=== PATIENT | male | born 1955 | race African-American/Black ===

== ENCOUNTER 2019-10-21 19:02 | Inpatient (IN) | payer MEDICAID, OTHER ==
[~2019-10-21] VITALS: Ht 180.3 cm; Wt 112.5 kg
[2019-10-21] MEDS ORDERED: ACETAMINOPHEN 325MG TABLET PO STA (19:29)
[2019-10-21] MEDS ORDERED: AZITHROMYCIN 500 MG in DEXT 5% WATER 250 ML IV ONE (19:30)
[2019-10-21] MEDS ORDERED: CEFTRIAXONE 1 G PREMIX 50 ML IV ONE (19:30)
[2019-10-21 22:11] LABS: BASOPHILS % 0.4 % (0.0-2.0); CHLORIDE 103 mEq/L (98-107); EOSINOPHILS % 0.6 % (0.0-5.0); HEMATOCRIT. 42.6 % (42.0-52.0); LYMPHOCYTES % 22.9 % (20.0-50.0); MEAN CORPUSCULAR VOLUME 82.2 fL (80.0-94.0); MONOCYTES % 8.7 % (2.0-8.0); NEUTROPHILS % 67.4 % (40.0-76.0); PLATELET 224 x1000/uL (130-400); RED BLOOD CELL COUNT 5.18 mill/uL (4.7-6.1); RED CELL DISTRIBUTION WIDTH 14.1 % (11.6-14.6)
[2019-10-22] MEDS ORDERED: ACETAMINOPHEN 325MG TABLET PO PRN (03:45)
[2019-10-22 05:25] VITALS: BP 112/80
[2019-10-22 06:50] VITALS: BP 112/80
[2019-10-22] MEDS ORDERED: ALBUTEROL 6.7GM HFA INHALER ORI PRN (07:00)
[2019-10-22 08:00] VITALS: BP 111/84
[2019-10-22] MEDS ORDERED: OXYB5TAB17 PO (08:00)
[2019-10-22] MEDS ORDERED: FINA1TAB18 PO (08:00)
[2019-10-22] MEDS ORDERED: TAMS-11 MT (08:00)
[2019-10-22] MEDS ORDERED: GABA-531 PO (08:00)
[2019-10-22] MEDS ORDERED: MULT-1146 MT (08:00)
[2019-10-22] MEDS ORDERED: GEMF600T5 MT (08:00)
[2019-10-22] MEDS ORDERED: BENZ100C86 MT (08:15)
[2019-10-22] MEDS ORDERED: FAMO20TA8 MT (08:15)
[2019-10-22] MEDS ORDERED: TAP5 MT (08:18)
[2019-10-22] MEDS: ACETAMINOPHEN 650MG/20.3ML UDC PO PRN ×2 (08:42→13:55)
[2019-10-22] MEDS ORDERED: MECL-159 PO (11:03)
[2019-10-22 12:00] VITALS: BP 110/64
[2019-10-22 16:00] VITALS: BP 111/83
[2019-10-22] MEDS: HYDROCODONE/ACETAMINOPHEN 10/325MG TABLET PO PRN (19:01)
[2019-10-22 20:00] VITALS: BP 125/84
[2019-10-22] MEDS: AZITHROMYCIN 250 MG in DEXT 5% WATER 250 ML IV SCH (21:42)
[2019-10-22] MEDS: CEFTRIAXONE 1 G PREMIX 50 ML IV SCH (21:42)
[2019-10-22] MEDS: ATORVASTATIN CALCIUM 40MG TABLET PO SCH (21:44)
[2019-10-22] MEDS: ENOXAPARIN 30MG/0.3ML SYR SUBCUT SCH (21:45)
[2019-10-23] VITALS: BP 128/75
[2019-10-23 04:00] VITALS: BP 119/67
[2019-10-23] MEDS: HYDROCODONE/ACETAMINOPHEN 10/325MG TABLET PO PRN ×3 (04:17→16:09)
[2019-10-23 08:00] VITALS: BP 118/76
[2019-10-23] MEDS: ENOXAPARIN 30MG/0.3ML SYR SUBCUT SCH (08:00)
[2019-10-23] MEDS: GUAIFENESIN 200MG/10ML SUGAR FREE UDC PO PRN (11:17)
[2019-10-23 12:00] VITALS: BP 116/68
[2019-10-23 16:00] VITALS: BP 118/60
[2019-10-23] MEDS: ACETAMINOPHEN 650MG/20.3ML UDC PO PRN (17:18)
[2019-10-23 20:00] VITALS: BP 102/55
[2019-10-23] MEDS ORDERED: REMDESIVIR 200 MG in SODIUM CHLORIDE 0.9% 250 ML IV NR (21:00)
[2019-10-23] MEDS: ZINC SULFATE 220 MG ( 50 ) CAPSULE PO SCH (21:20)
[2019-10-23] MEDS: ATORVASTATIN CALCIUM 40MG TABLET PO SCH (21:20)
[2019-10-23] MEDS: ASCORBIC ACID 500 MG TABLET PO SCH (21:21)
[2019-10-23] MEDS: THIAMINE HCL 100MG TABLET PO SCH (21:21)
[2019-10-23] MEDS: ENOXAPARIN 120MG/0.8ML SYR SUBCUT SCH (21:22)
[2019-10-23] MEDS: CEFTRIAXONE 1 G PREMIX 50 ML IV SCH (21:22)
[2019-10-23] MEDS: AZITHROMYCIN 250 MG in DEXT 5% WATER 250 ML IV SCH (23:31)
[2019-10-24] VITALS: BP 130/74
[2019-10-24 04:00] VITALS: BP 135/82
[2019-10-24 06:15] LABS: BASOPHILS % 0.3 % (0.0-2.0); EOSINOPHILS % 0.1 % (0.0-5.0); HEMATOCRIT. 40.5 % (42.0-52.0); HEMOGLOBIN. 13.9 g/dL (14.0-18.0); MEAN CORPUSCULAR VOLUME 81.7 fL (80.0-94.0); MEAN PLATELET VOLUME 7.8 fl (7.4-10.4); MONOCYTES % 8.3 % (2.0-8.0); NEUTROPHILS % 80.3 % (40.0-76.0); PLATELET 250 x1000/uL (130-400); RED BLOOD CELL COUNT 4.95 mill/uL (4.7-6.1); RED CELL DISTRIBUTION WIDTH 14.3 % (11.6-14.6)
[2019-10-24 06:28] LABS: CHLORIDE 103 mEq/L (98-107)
[2019-10-24 08:00] VITALS: BP 121/70
[2019-10-24] MEDS: THIAMINE HCL 100MG TABLET PO SCH ×2 (08:39→17:00)
[2019-10-24] MEDS: ENOXAPARIN 120MG/0.8ML SYR SUBCUT SCH ×2 (08:39→20:43)
[2019-10-24] MEDS: ZINC SULFATE 220 MG ( 50 ) CAPSULE PO SCH (08:39)
[2019-10-24] MEDS: ASCORBIC ACID 500 MG TABLET PO SCH ×2 (08:39→17:00)
[2019-10-24 12:00] VITALS: BP 112/72
[2019-10-24 16:00] VITALS: BP 120/75
[2019-10-24] MEDS: METHYLPREDNISOLONE SOD SUCC 40 MG/ML VIAL IV SCH (17:40)
[2019-10-24 17:58] LABS: BG BASE EXCESS -1.5 mmol/L (-2.0-2.0); BG CARBOXYHEMOGLOBIN 0.3 % (0.5-1.5); BG DEOXYHEMOGLOBIN 4.8 % (0.0-5.0); BG FRACTION INSPIRED OXYGEN 100; BG HCO3 ACT 22.9 mmol/L (22.0-26.0); BG METHEMOGLOBIN 0.4 % (0.0-1.5); BG OXYGEN SATURATION 95.2 % (92.0-98.5); BG OXYHEMOGLOBIN 94.5 % (94.0-97.0); BG PCO2 37.4 mmHg (35.0-45.0); BG PH 7.404 (7.350-7.450); BG PO2 80.9 mmHg (75.0-100.0); BG SAMPLE SITE LEFT RADIAL; BG TOTAL HEMOGLOBIN 14.3 g/dL (12.0-18.0); BG VENT MODE MASK - NRB
[2019-10-24] MEDS: ALBUTEROL 6.7GM HFA INHALER ORI SCH (18:30)
[2019-10-24 20:00] VITALS: BP 133/82
[2019-10-24] MEDS: CEFTRIAXONE 1 G PREMIX 50 ML IV SCH (20:01)
[2019-10-24] MEDS: REMDESIVIR 100 MG in SODIUM CHLORIDE 0.9% 250 ML IV SCH (20:41)
[2019-10-24] MEDS: AZITHROMYCIN 250 MG in DEXT 5% WATER 250 ML IV SCH (21:00)
[2019-10-24] MEDS: ATORVASTATIN CALCIUM 40MG TABLET PO SCH (21:00)
[2019-10-25] VITALS: BP 113/82
[2019-10-25 04:00] VITALS: BP 115/73
[2019-10-25 06:04] LABS: INR 1.1; PROTHROMBIN TIME 11.7 sec (9.6-11.0)
[2019-10-25 06:19] LABS: T4 FREE 0.99 ng/dL (0.76-1.46)
[2019-10-25 08:00] VITALS: BP 114/72
[2019-10-25] MEDS: ENOXAPARIN 120MG/0.8ML SYR SUBCUT SCH ×2 (08:58→21:00)
[2019-10-25] MEDS: ASCORBIC ACID 500 MG TABLET PO SCH ×2 (08:58→17:44)
[2019-10-25] MEDS: THIAMINE HCL 100MG TABLET PO SCH ×2 (08:58→17:44)
[2019-10-25] MEDS: ZINC SULFATE 220 MG ( 50 ) CAPSULE PO SCH (08:58)
[2019-10-25] MEDS: METHYLPREDNISOLONE SOD SUCC 40 MG/ML VIAL IV SCH ×2 (08:58→17:44)
[2019-10-25 12:00] VITALS: BP 115/74
[2019-10-25] MEDS: ALBUTEROL 6.7GM HFA INHALER ORI SCH ×2 (12:16→18:00)
[2019-10-25 16:00] VITALS: BP 114/69
[2019-10-25 20:00] VITALS: BP 122/70
[2019-10-25] MEDS: CEFTRIAXONE 1 G PREMIX 50 ML IV SCH (22:29)
[2019-10-25] MEDS: REMDESIVIR 100 MG in SODIUM CHLORIDE 0.9% 250 ML IV SCH (22:29)
[2019-10-25] MEDS: AZITHROMYCIN 250 MG in DEXT 5% WATER 250 ML IV SCH (22:30)
[2019-10-25] MEDS: ATORVASTATIN CALCIUM 40MG TABLET PO SCH (22:30)
[2019-10-26] VITALS: BP 111/79
[2019-10-26 04:00] VITALS: BP 114/81
[2019-10-26] MEDS: ALBUTEROL 6.7GM HFA INHALER ORI SCH ×3 (05:59→17:18)
[2019-10-26 06:28] LABS: CHLORIDE 108 mEq/L (98-107)
[2019-10-26 08:26] VITALS: BP 114/60
[2019-10-26] MEDS: METHYLPREDNISOLONE SOD SUCC 40 MG/ML VIAL IV SCH ×2 (08:36→16:06)
[2019-10-26] MEDS: THIAMINE HCL 100MG TABLET PO SCH ×2 (08:37→16:06)
[2019-10-26] MEDS: ZINC SULFATE 220 MG ( 50 ) CAPSULE PO SCH (08:37)
[2019-10-26] MEDS: ASCORBIC ACID 500 MG TABLET PO SCH ×2 (08:37→16:06)
[2019-10-26] MEDS: ENOXAPARIN 120MG/0.8ML SYR SUBCUT SCH ×2 (08:37→20:37)
[2019-10-26 12:05] VITALS: BP 100/64
[2019-10-26 15:36] VITALS: BP 106/58
[2019-10-26 20:00] VITALS: BP 103/59
[2019-10-26] MEDS: ATORVASTATIN CALCIUM 40MG TABLET PO SCH (20:37)
[2019-10-26] MEDS: REMDESIVIR 100 MG in SODIUM CHLORIDE 0.9% 250 ML IV SCH (20:37)
[2019-10-26] MEDS: GUAIFENESIN 200MG/10ML SUGAR FREE UDC PO PRN (20:41)
[2019-10-27] VITALS: BP 104/68
[2019-10-27 04:00] VITALS: BP 97/55
[2019-10-27] MEDS: ALBUTEROL 6.7GM HFA INHALER ORI SCH ×3 (06:30→17:16)
[2019-10-27 08:03] LABS: CHLORIDE 110 mEq/L (98-107)
[2019-10-27 08:26] VITALS: BP 110/64
[2019-10-27] MEDS: ASCORBIC ACID 500 MG TABLET PO SCH ×2 (09:17→17:15)
[2019-10-27] MEDS: METHYLPREDNISOLONE SOD SUCC 40 MG/ML VIAL IV SCH ×2 (09:18→17:15)
[2019-10-27] MEDS: ZINC SULFATE 220 MG ( 50 ) CAPSULE PO SCH (09:18)
[2019-10-27] MEDS: THIAMINE HCL 100MG TABLET PO SCH ×2 (09:18→17:16)
[2019-10-27] MEDS: ENOXAPARIN 120MG/0.8ML SYR SUBCUT SCH ×2 (09:19→21:20)
[2019-10-27 12:00] VITALS: BP 110/74
[2019-10-27 12:32] LABS: BG BASE EXCESS -4.9 mmol/L (-2.0-2.0); BG CARBOXYHEMOGLOBIN 0.2 % (0.5-1.5); BG DEOXYHEMOGLOBIN 5.4 % (0.0-5.0); BG FRACTION INSPIRED OXYGEN 100; BG HCO3 ACT 19.7 mmol/L (22.0-26.0); BG METHEMOGLOBIN 0.3 % (0.0-1.5); BG OXYGEN SATURATION 94.6 % (92.0-98.5); BG OXYHEMOGLOBIN 94.1 % (94.0-97.0); BG PCO2 35.1 mmHg (35.0-45.0); BG PH 7.366 (7.350-7.450); BG PO2 77.6 mmHg (75.0-100.0); BG SAMPLE SITE RIGHT RADIAL; BG VENT MODE MASK - NRB
[2019-10-27 16:00] VITALS: BP 101/63
[2019-10-27 20:00] VITALS: BP 119/87
[2019-10-27] MEDS: REMDESIVIR 100 MG in SODIUM CHLORIDE 0.9% 250 ML IV SCH (21:19)
[2019-10-27] MEDS: ATORVASTATIN CALCIUM 40MG TABLET PO SCH (21:19)
[2019-10-28] VITALS (10 sets, daily range): BP systolic 109–122; BP diastolic 64–77
[2019-10-28] MEDS: ALBUTEROL 6.7GM HFA INHALER ORI SCH ×4 (00:14→17:43)
[2019-10-28] MEDS: ENOXAPARIN 120MG/0.8ML SYR SUBCUT SCH ×2 (08:25→20:39)
[2019-10-28] MEDS: ASCORBIC ACID 500 MG TABLET PO SCH ×2 (08:25→17:42)
[2019-10-28] MEDS: METHYLPREDNISOLONE SOD SUCC 40 MG/ML VIAL IV SCH ×2 (08:25→17:42)
[2019-10-28] MEDS: THIAMINE HCL 100MG TABLET PO SCH ×2 (08:25→17:42)
[2019-10-28] MEDS: ZINC SULFATE 220 MG ( 50 ) CAPSULE PO SCH (08:25)
[2019-10-28 08:36] LABS: CHLORIDE 111 mEq/L (98-107)
[2019-10-28] MEDS: GUAIFENESIN 200MG/10ML SUGAR FREE UDC PO PRN (17:42)
[2019-10-28] MEDS: ATORVASTATIN CALCIUM 40MG TABLET PO SCH (20:38)
[2019-10-29] VITALS: BP 129/73
[2019-10-29] MEDS: ALBUTEROL 6.7GM HFA INHALER ORI SCH ×5 (00:07→23:09)
[2019-10-29] MEDS: GUAIFENESIN 200MG/10ML SUGAR FREE UDC PO PRN ×2 (00:07→08:18)
[2019-10-29 04:00] VITALS: BP 104/67
[2019-10-29 08:00] VITALS: BP 122/68
[2019-10-29 08:04] LABS: CHLORIDE 109 mEq/L (98-107)
[2019-10-29] MEDS: ASCORBIC ACID 500 MG TABLET PO SCH ×2 (08:18→17:03)
[2019-10-29] MEDS: METHYLPREDNISOLONE SOD SUCC 40 MG/ML VIAL IV SCH ×2 (08:18→17:03)
[2019-10-29] MEDS: ENOXAPARIN 120MG/0.8ML SYR SUBCUT SCH ×2 (08:18→20:49)
[2019-10-29] MEDS: THIAMINE HCL 100MG TABLET PO SCH ×2 (08:19→17:03)
[2019-10-29] MEDS: ZINC SULFATE 220 MG ( 50 ) CAPSULE PO SCH (08:19)
[2019-10-29 12:00] VITALS: BP 101/63
[2019-10-29 16:00] VITALS: BP 102/59
[2019-10-29 20:00] VITALS: BP 102/65
[2019-10-29] MEDS: ATORVASTATIN CALCIUM 40MG TABLET PO SCH (20:49)
[2019-10-30] VITALS: BP 104/72
[2019-10-30 04:00] VITALS: BP_SYST 103; BP_SYST 148; BP_DIAS 66; BP_DIAS 77
[2019-10-30] MEDS: ALBUTEROL 6.7GM HFA INHALER ORI SCH ×3 (05:00→17:09)
[2019-10-30] MEDS: ENOXAPARIN 120MG/0.8ML SYR SUBCUT SCH ×2 (08:36→20:53)
[2019-10-30] MEDS: METHYLPREDNISOLONE SOD SUCC 40 MG/ML VIAL IV SCH ×2 (08:36→16:53)
[2019-10-30] MEDS: GUAIFENESIN 200MG/10ML SUGAR FREE UDC PO PRN (08:36)
[2019-10-30] MEDS: ZINC SULFATE 220 MG ( 50 ) CAPSULE PO SCH (08:36)
[2019-10-30 08:53] VITALS: BP 102/63
[2019-10-30 12:16] VITALS: BP 91/60
[2019-10-30 16:30] LABS: BG BASE EXCESS -1.3 mmol/L (-2.0-2.0); BG CARBOXYHEMOGLOBIN 0.6 % (0.5-1.5); BG FRACTION INSPIRED OXYGEN 21; BG HCO3 ACT 22.7 mmol/L (22.0-26.0); BG METHEMOGLOBIN 0.3 % (0.0-1.5); BG OXYGEN SATURATION 86.9 % (92.0-98.5); BG OXYHEMOGLOBIN 86.1 % (94.0-97.0); BG PH 7.417 (7.350-7.450); BG PO2 51.6 mmHg (75.0-100.0); BG SAMPLE SITE RIGHT BRACHIAL; BG TOTAL HEMOGLOBIN 14.9 g/dL (12.0-18.0); BG VENT MODE ROOM AIR
[2019-10-30 16:40] VITALS: BP 112/59
[2019-10-30 20:00] VITALS: BP 110/71
[2019-10-30] MEDS: ATORVASTATIN CALCIUM 40MG TABLET PO SCH (20:54)
[2019-10-31] VITALS (7 sets, daily range): BP systolic 92–112; BP diastolic 54–67
[2019-10-31] MEDS: ALBUTEROL 6.7GM HFA INHALER ORI SCH ×4 (00:16→17:27)
[2019-10-31] MEDS: ZINC SULFATE 220 MG ( 50 ) CAPSULE PO SCH (08:56)
[2019-10-31] MEDS: METHYLPREDNISOLONE SOD SUCC 40 MG/ML VIAL IV SCH (08:56)
[2019-10-31] MEDS: ENOXAPARIN 120MG/0.8ML SYR SUBCUT SCH ×2 (08:57→22:43)
[2019-10-31] MEDS ORDERED: PROSOL IH (11:54)
[2019-10-31] MEDS ORDERED: BENZ100C86 MT (11:54)
[2019-10-31] MEDS: ATORVASTATIN CALCIUM 40MG TABLET PO SCH (21:00)
[2019-10-31] MEDS: GUAIFENESIN 200MG/10ML SUGAR FREE UDC PO PRN (23:56)
[2019-11-01] VITALS: BP 102/63
[2019-11-01 04:00] VITALS: BP 91/64
[2019-11-01] MEDS: ALBUTEROL 6.7GM HFA INHALER ORI SCH ×3 (06:21→11:14)
[2019-11-01 08:00] VITALS: BP 92/54
[2019-11-01] MEDS: ENOXAPARIN 120MG/0.8ML SYR SUBCUT SCH (08:52)
[2019-11-01] MEDS: ZINC SULFATE 220 MG ( 50 ) CAPSULE PO SCH (08:52)
[2019-11-01] MEDS ORDERED: PREDNISONE 20MG TABLET PO SCH (09:00)
[2019-11-01 10:28] LABS: BG BASE EXCESS 2.5 mmol/L (-2.0-2.0); BG CARBOXYHEMOGLOBIN 0.6 % (0.5-1.5); BG DEOXYHEMOGLOBIN 20.8 % (0.0-5.0); BG FRACTION INSPIRED OXYGEN 21; BG HCO3 ACT 25.6 mmol/L (22.0-26.0); BG METHEMOGLOBIN 0.3 % (0.0-1.5); BG OXYHEMOGLOBIN 78.3 % (94.0-97.0); BG PCO2 35.2 mmHg (35.0-45.0); BG PO2 43.7 mmHg (75.0-100.0); BG SAMPLE SITE RIGHT BRACHIAL; BG TOTAL HEMOGLOBIN 15.3 g/dL (12.0-18.0); BG VENT MODE ROOM AIR
[2019-11-01 12:00] VITALS: BP 114/84
== END 2019-11-01 13:15 | disposition home or self-care (01) | DRG 720 ==
LOC: ER 19:02 → MICUSO 23:21 → EDBEDREQTM 23:28 → EDBEDREQ 23:28 → EDBEDREQSVC 23:28 → 7WST 10-22 05:31
PROVIDERS: ADMIT Internal Medicine; ATTEND Internal Medicine
PROC: 30233K1 Transfusion of Nonautologous Frozen Plasma into Peripheral Vein, Percutaneous Approach (ICD-10-PCS; principal; 2019-10-28)
DX: A41.89 Other specified sepsis (principal); U07.1 COVID-19; J96.01 Acute respiratory failure with hypoxia; N17.0 Acute kidney failure with tubular necrosis; E44.0 Moderate protein-calorie malnutrition; J12.89 Other viral pneumonia; E78.5 Hyperlipidemia, unspecified; N40.0 Benign prostatic hyperplasia without lower urinary tract symptoms; J44.1 Chronic obstructive pulmonary disease with (acute) exacerbation; F17.210 Nicotine dependence, cigarettes, uncomplicated; E05.90 Thyrotoxicosis, unspecified without thyrotoxic crisis or storm; E78.00 Pure hypercholesterolemia, unspecified; J44.0 Chronic obstructive pulmonary disease with (acute) lower respiratory infection; Z79.899 Other long term (current) drug therapy; Z68.34 Body mass index [BMI] 34.0-34.9, adult; Z79.1 Long term (current) use of non-steroidal anti-inflammatories (NSAID)
CPT/HCPCS: 36415; 36600; 71045; 80048; 80053; 82375; 82805; 83605; 83615; 83880; 84439; 84443; 84481; 84484; 85025; 85379; 85384; 86850; 86900; 86927; 93005; 96365; 99285; J0456; J0696; J1650; J2920; J7050; J7060; J7512; P9017; Q9957; U0003-CS

== ENCOUNTER 2020-01-10 16:01 | Emergency (ER) | payer MEDICAID ==
[~2020-01-10] VITALS: Ht 180.3 cm; Wt 100.0 kg
[~2020-01-10 16:01] MED LIST: BENZ100C86 MT; FAMO20TA8 MT; FINA1TAB18 PO; GABA-531 PO; GEMF600T5 MT; MECL-159 PO; MULT-1146 MT; OXYB5TAB17 PO; PROSOL IH; TAMS-11 MT; TAP5 MT
[2020-01-10] MEDS ORDERED: ALBUTEROL (0.083%) 2.5MG/3ML NEB HHN STA (17:22)
[2020-01-10] MEDS ORDERED: IPRATROPIUM BROMIDE (0.02%) 0.5MG/2.5ML NEB HHN STA (17:22)
[2020-01-10] MEDS ORDERED: PREDNISONE 20MG TABLET PO STA (17:22)
[2020-01-10] MEDS ORDERED: IPRATROPIUM BROMIDE (0.02%) 0.5MG/2.5ML NEB ONE (18:19)
[2020-01-10] MEDS ORDERED: ALBUTEROL (0.083%) 2.5MG/3ML NEB ONE (18:20)
[2020-01-10] MEDS ORDERED: ALBUTEROL (0.5%) 2.5MG/0.5ML NEB HHN ONE (18:21)
[2020-01-10 18:58] LABS: BASOPHILS % 0.6 % (0.0-2.0); EOSINOPHILS % 0.8 % (0.0-5.0); HEMATOCRIT. 41.6 % (42.0-52.0); HEMOGLOBIN. 13.8 g/dL (14.0-18.0); LYMPHOCYTES % 42.1 % (20.0-50.0); MEAN CORPUSCULAR HEMOGLOBIN 27.4 pg (28.0-32.0); MEAN CORPUSCULAR VOLUME 82.3 fL (80.0-94.0); MEAN PLATELET VOLUME 7.4 fl (7.4-10.4); MONOCYTES % 7.3 % (2.0-8.0); NEUTROPHILS % 49.2 % (40.0-76.0); PLATELET 288 x1000/uL (130-400); RED BLOOD CELL COUNT 5.05 mill/uL (4.7-6.1); RED CELL DISTRIBUTION WIDTH 16.5 % (11.6-14.6)
[2020-01-10 19:06] LABS: CHLORIDE 109 mEq/L (98-107)
[2020-01-10 20:20] VITALS: BP 125/59
== END 2020-01-10 20:20 | disposition home or self-care (01) ==
LOC: ER 16:01
DX: J44.1 Chronic obstructive pulmonary disease with (acute) exacerbation (principal); J45.901 Unspecified asthma with (acute) exacerbation; Z79.899 Other long term (current) drug therapy
CPT/HCPCS: 36415; 71045; 80053; 83880; 84484; 85025; 93005; 94640; 99285; J7512; Z7610

== ENCOUNTER 2020-02-13 13:09 | Emergency (ER) | payer MEDICAID ==
[~2020-02-13] VITALS: Ht 180.3 cm; Wt 103.8 kg
[2020-02-13 13:16] VITALS: BP 149/97
[2020-02-13] MEDS ORDERED: ALBUTEROL (0.083%) 2.5MG/3ML NEB HHN ONE (14:00)
[2020-02-13] MEDS ORDERED: PREDNISONE 20MG TABLET PO ONE (14:15)
== END 2020-02-13 14:52 | disposition home or self-care (01) ==
LOC: ER 13:09
DX: J44.9 Chronic obstructive pulmonary disease, unspecified (principal)
CPT/HCPCS: 94640; 99283; J7512; Z7610

== ENCOUNTER 2022-04-24 11:57 | Emergency (ER) | payer MEDICARE, MEDICAID ==
[~2022-04-24] VITALS: Ht 180.3 cm; Wt 95.0 kg
[~2022-04-24 11:57] MED LIST changes: -GABA-531 PO; +GABA-532 PO; -GEMF600T5 MT; +GEMF600T90 MT; +METH-371 MT; -TAP5 MT
[2022-04-24 12:22] VITALS: BP 141/90
[2022-04-24] MEDS ORDERED: DIPHENHYDRAMINE 50MG CAPSULE PO ONE (15:30)
[2022-04-24] MEDS ORDERED: B50 MT (15:57)
[2022-04-24] MEDS ORDERED: P50 MT (15:57)
== END 2022-04-24 16:29 | disposition home or self-care (01) ==
LOC: ER 11:57
DX: L27.0 Generalized skin eruption due to drugs and medicaments taken internally (principal); T50.B95A Adverse effect of other viral vaccines, initial encounter; Y92.89 Other specified places as the place of occurrence of the external cause
CPT/HCPCS: 99282; Q0163